=== PATIENT | female | born 1975 | race Caucasian/White ===

== ENCOUNTER 2018-04-13 11:45 | Emergency (ER) | payer BC, MEDICAID, OTHER ==
[~2018-04-13] VITALS: Ht 185.4 cm; Wt 114.7 kg
[~2018-04-13 11:45] MED LIST: CYCL-1 PO; DROS1TAB3 PO; FERR1TAB6 PO; HYDR-3964 PO; HYDR-569 PO; LOSA50TA3 PO; MULT-1085 PO; SENN-74 PO
[2018-04-13] MEDS ORDERED: HYDR-565 PO (11:58)
[2018-04-13 12:42] VITALS: BP 176/121
== END 2018-04-13 12:41 | disposition home or self-care (01) ==
LOC: ER 11:46
DX: K02.9 Dental caries, unspecified (principal); R03.0 Elevated blood-pressure reading, without diagnosis of hypertension; G89.29 Other chronic pain; Z90.49 Acquired absence of other specified parts of digestive tract; Z98.84 Bariatric surgery status; Z56.0 Unemployment, unspecified; Z88.2 Allergy status to sulfonamides; Z88.8 Allergy status to other drugs, medicaments and biological substances; Z79.899 Other long term (current) drug therapy
CPT/HCPCS: 99283

== ENCOUNTER 2023-05-09 20:57 | Emergency (ER) | payer BC ==
[~2023-05-09] VITALS: Ht 185.4 cm; Wt 129.6 kg
[~2023-05-09 20:57] MED LIST changes: +HYDR-4383 PO; -HYDR-569 PO; +LOSA-416 PO; -LOSA50TA3 PO
[2023-05-09] MEDS ORDERED: LEVO200T8 PO (23:07)
[2023-05-09] MEDS ORDERED: GABA600T13 PO (23:07)
[2023-05-09] MEDS ORDERED: BUSP10TA3 PO (23:07)
[2023-05-09] MEDS ORDERED: BUPR1FIL20 PO (23:07)
[2023-05-09] MEDS ORDERED: SERT-432 PO (23:07)
[2023-05-09] MEDS ORDERED: RISP1TAB98 PO (23:07)
[2023-05-09] MEDS ORDERED: LISI20TA28 PO (23:07)
[2023-05-09] MEDS ORDERED: FURO40TA4 PO (23:07)
[2023-05-09] MEDS ORDERED: OXYB5TAB16 PO (23:07)
[2023-05-09 23:32] LABS: BASOPHILS # (AUTO) 0.1 X10'3 (0-0.2); BASOPHILS % (AUTO) 0.7 % (0-1); EOSINOPHILS # (AUTO) 0.4 X10'3 (0-0.9); EOSINOPHILS % (AUTO) 4.7 % (0-6); HEMATOCRIT 35.1 % (35.0-45.0); HEMOGLOBIN 11.4 g/dl (12.0-16.0); LYMPHOCYTES # (AUTO) 1.5 X10'3 (1.1-4.8); LYMPHOCYTES % (AUTO) 18.8 % (21-51); MEAN CORPUSCULAR HEMOGLOBIN 26.9 PG (27.0-31.0); MEAN CORPUSCULAR HGB CONC 32.4 g/dL (33.0-36.5); MEAN CORPUSCULAR VOLUME 82.8 FL (78-98); MEAN PLATELET VOLUME 6.8 FL (7.4-10.4); MONOCYTES # (AUTO) 0.5 X10'3 (0-0.9); MONOCYTES % (AUTO) 6.2 % (2-12); NEUTROPHILS # (AUTO) 5.7 X10'3 (1.8-7.7); NEUTROPHILS % (AUTO) 69.6 % (42-75); PLATELET COUNT 387 X10'3 (140-440); RED BLOOD COUNT 4.23 X10'6 (4.20-5.60); RED CELL DISTRIBUTION WIDTH 15.6 % (11.5-14.5); WHITE BLOOD COUNT 8.1 X10'3 (4.5-11.0)
[2023-05-09 23:34] LABS: ALANINE AMINOTRANSFERASE 20 U/L (12-78); ALBUMIN 3.9 G/DL (3.4-5.0); ALKALINE PHOSPHATASE 104 IU/L (46-116); ANION GAP 10 (8-16); ASPARTATE AMINO TRANSFERASE 17 U/L (10-37); BILIRUBIN,TOTAL 0.3 MG/DL (0.1-1.0); BLOOD UREA NITROGEN 17 MG/DL (7-18); BUN/CREATININE RATIO 14.2 (10.0-20.0); CALCIUM 9.1 MG/DL (8.5-10.1); CHLORIDE 99 MMOL/L (99-107); GLUCOSE 95 MG/DL (70-104); POTASSIUM 3.4 MMOL/L (3.5-5.1); SODIUM 141 MMOL/L (135-145); TOTAL PROTEIN 7.9 G/DL (6.4-8.2); eGFR 48 ML/MIN
[2023-05-10 00:52] VITALS: BP 115/55
[2023-05-10] MEDS ORDERED: HYDR25TA5 PO (01:07)
[2023-05-10] MEDS ORDERED: CEPH-585 PO (01:07)
[2023-05-10] MEDS ORDERED: POTA-207 PO (01:07)
== END 2023-05-10 01:51 | disposition home or self-care (01) ==
LOC: ER 20:57
DX: L03.116 Cellulitis of left lower limb (principal); L03.115 Cellulitis of right lower limb; R60.0 Localized edema; G89.29 Other chronic pain; F17.210 Nicotine dependence, cigarettes, uncomplicated; Z90.49 Acquired absence of other specified parts of digestive tract; Z98.84 Bariatric surgery status; Z56.0 Unemployment, unspecified; Z79.899 Other long term (current) drug therapy; Z88.2 Allergy status to sulfonamides; Z88.8 Allergy status to other drugs, medicaments and biological substances; Z79.2 Long term (current) use of antibiotics; Z92.3 Personal history of irradiation
CPT/HCPCS: 36415; 71045; 80053; 83880; 84145; 85025; 99284

== ENCOUNTER 2023-06-04 16:53 | Emergency (ER) | payer BC ==
[~2023-06-04] VITALS: Ht 185.4 cm; Wt 125.0 kg
[~2023-06-04 16:53] MED LIST changes: +BUPR1FIL20 PO; +BUSP10TA3 PO; +CEPH-585 PO; -CYCL-1 PO; -DROS1TAB3 PO; -FERR1TAB6 PO; +FURO40TA4 PO; +GABA600T13 PO; -HYDR-3964 PO; -HYDR-4383 PO; +HYDR25TA5 PO; +LEVO200T8 PO; +LISI20TA28 PO; -LOSA-416 PO; -MULT-1085 PO; +OXYB5TAB16 PO; +POTA-207 PO; +RISP1TAB98 PO; -SENN-74 PO; +SERT-432 PO
[2023-06-04 17:32] VITALS: TEMP 97
[2023-06-04] MEDS ORDERED: bacitracin 15gm ointment TP ONE (22:10)
[2023-06-04] MEDS ORDERED: cephalexin 250mg capsule PO ONE (22:15)
[2023-06-04] MEDS ORDERED: CEPH250T PO (22:18)
[2023-06-04] MEDS ORDERED: NEOM30OI17 TOP (22:18)
[2023-06-04 22:37] VITALS: BP 157/101; PULSE 75; RESP 16; O2SAT 100
== END 2023-06-04 22:39 | disposition home or self-care (01) ==
LOC: ER 16:54
DX: L98.8 Other specified disorders of the skin and subcutaneous tissue (principal); I10 Essential (primary) hypertension; G89.29 Other chronic pain; M54.9 Dorsalgia, unspecified; F17.200 Nicotine dependence, unspecified, uncomplicated; F41.9 Anxiety disorder, unspecified; Z88.2 Allergy status to sulfonamides; Z88.8 Allergy status to other drugs, medicaments and biological substances; Z79.899 Other long term (current) drug therapy
CPT/HCPCS: 71045; 93005; 99284; 99285; A6258; A6449